=== PATIENT | female | born 1945 | race Caucasian/White ===

== ENCOUNTER 2017-03-08 21:49 | Inpatient (IN) | payer OTHER ==
[~2017-03-08] VITALS: Ht 170.2 cm; Wt 127.9 kg
[~2017-03-08 21:49] MED LIST: ACET-3457 PO; FENT100T TD
[2017-03-08 21:57] VITALS: BP 152/96
--- NOTE | 2017-03-08 22:25 | NUR ---
PT BIBA AND PLACED IN BED 10.
[2017-03-08 23:28] LABS: HEMATOCRIT 34.7 % (36-48); HEMOGLOBIN 11.2 g/dL (12.0-16.0); MEAN CORPUSCULAR HEMOGLOBIN 28 pg (27-31); MEAN CORPUSCULAR HGB CONC 32 g/dL (33-37); MEAN CORPUSCULAR VOLUME 86 fL (80-94); PLATELET COUNT (AUTO) 228 K/uL (140-450); RED BLOOD CELL COUNT(AUTO) 4.03 MIL/uL (4.20-5.40); RED CELL DISTRIBUTION WIDTH 15.1 % (11.6-13.7); WHITE BLOOD COUNT (AUTO) 6.3 K/uL (4.8-10.8)
[2017-03-08 23:35] LABS: APPEARANCE,URINE CLEAR (CLEAR); BILIRUBIN,URINE NEGATIVE (NEGATIVE); BLOOD, URINE NEGATIVE (NEGATIVE); COLOR,URINE YELLOW (YELLOW); LEUKOCYTE ESTERASE ,URINE NEGATIVE (NEGATIVE); NITRITE, URINE NEGATIVE (NEGATIVE); UGLUCOSE NEGATIVE (NEGATIVE)
[2017-03-08 23:39] LABS: ANION GAP 11.7 (8-16); CARBON DIOXIDE 30.9 mmol/L (21-32); CREATININE 0.9 mg/dL (0.6-1.3); LYMPHOCYTES % (MANUAL) 17 % (20-46); MONOCYTES % (MANUAL) 12 % (5-12); POTASSIUM 3.6 mmol/L (3.5-5.1)
[2017-03-08 23:45] LABS: ALBUMIN 3.5 g/dL (3.4-5.0); TOTAL BILIRUBIN 0.9 mg/dL (0.0-1.0)
[2017-03-09 00:06] LABS: PROTHROMBIN TIME 11.4 secs (10.8-13.4)
[2017-03-09] MEDS ORDERED: HYDROmorphone 1 MG/ML AMP IVP ONE ×2 (00:15→02:55)
--- NOTE | 2017-03-09 00:20 | NUR ---
Pt c/o right lower leg pain 10/. Pt in tears. Notified Dr Leach.
[2017-03-09] MEDS ORDERED: HYDROmorphone 1 MG/ML AMP ONE ×2 (00:26→03:08)
--- NOTE | 2017-03-09 00:37 | NUR ---
Patient being evaluated by Dr. Leach at bedside.
[2017-03-09] MEDS ORDERED: ORE25 PO (00:40)
[2017-03-09] MEDS ORDERED: NAPR500T1 PO (00:40)
[2017-03-09] MEDS ORDERED: METO25TE2 PO (00:40)
[2017-03-09] MEDS ORDERED: DIT5 PO (00:40)
[2017-03-09] MEDS ORDERED: PREG100C PO (00:40)
[2017-03-09] MEDS ORDERED: OMEP20TC12 PO (00:40)
[2017-03-09] MEDS ORDERED: ACET-5636 PO (00:40)
[2017-03-09] MEDS ORDERED: diphenhydrAMINE 50 MG/ML VIAL IVP ONE (00:50)
[2017-03-09] MEDS ORDERED: VANCOMYCIN 1,000 MG in DEXTROSE 5% 250 ML IV ONE (00:50)
[2017-03-09] MEDS ORDERED: CEFEPIME 1,000 MG in DEXTROSE 5% 50 ML IV ONE (00:50)
--- NOTE | 2017-03-09 00:51 | NUR ---
X-Ray at bedside.
--- NOTE | 2017-03-09 01:13 | NUR ---
Ultrasound at bedside.
[2017-03-09] MEDS ORDERED: CEFEPIME 1,000 MG VIAL ONE (01:42)
[2017-03-09] MEDS ORDERED: VANCOMYCIN 1,000 MG VIAL ONE (01:42)
[2017-03-09] MEDS ORDERED: FUROSEMIDE 20 MG/2 ML VIAL IVP ONE (01:50)
--- NOTE | 2017-03-09 02:00 | NUR ---
Pt resting. No changes.
[2017-03-09] MEDS ORDERED: MORPHINE SULFATE 4 MG/ML SYR IVP PRN (02:35)
[2017-03-09] MEDS ORDERED: LORazepam 2 MG/ML VIAL IVP PRN (02:35)
[2017-03-09] MEDS ORDERED: ONDANSETRON 4 MG/2 ML VIAL IVP PRN (02:35)
--- NOTE | 2017-03-09 03:10 | NUR ---
Patient will be admitted to care of Dr Mayorga. Admited to Tele. Will go to room 111B. Belongings list completed. Report to ARCHIE Bond.
--- NOTE | 2017-03-09 03:20 | NUR ---
ADMITTED PT FROM ER VIA [facility]ANCA. AAOX4. IV TO RIGHT AC #20, PATENT AND INTACT. PT HAS SANCHES CATH #16F. V/S TAKEN. PHYSICAL ASSESSMENT DONE. ORIENTED PT TO ROOM. DISCUSSED PLAN OF CARE, PT VERBALIZE UNDERSTANDING. NO C/O PAIN. SAFETY PRECAUTION IN PLACE. CALL LIGHT WITHIN REACH. WILL CONTINUE TO MONITOR.
[2017-03-09 04:00] VITALS: BP 120/79
[2017-03-09] MEDS ORDERED: LORazepam 1 MG TAB PO PRN (04:40)
--- NOTE | 2017-03-09 05:30 | NUR ---
PT RESTING IN BED. NO DISTRESS NOTED. ALL NEEDS MET AT THIS TIME. CALL LIGHT WITHIN REACH.
[2017-03-09] MEDS ORDERED: CLINDAMYCIN 600 MG/4 ML VIAL ONE (05:31)
[2017-03-09] MEDS: CLINDAMYCIN 600 MG in DEXTROSE 5% 50 ML IV SCH ×4 (05:34→21:24)
[2017-03-09] MEDS ORDERED: INTERDRY CLOTH TP PRN (06:25)
[2017-03-09 07:09] LABS: BASOPHILS # (AUTO) 0.2 K/uL (0.00-0.22); BASOPHILS % (AUTO) 3.7 % (0.0-2.0); EOSINOPHILS # (AUTO) 0.2 K/uL (0-0.4); EOSINOPHILS % (AUTO) 2.8 % (0.0-4.0); HEMATOCRIT 33.3 % (36-48); HEMOGLOBIN 10.7 g/dL (12.0-16.0); LYMPHOCYTES # (AUTO) 1.6 K/uL (2.5-16.5); LYMPHOCYTES % (AUTO) 29.6 % (20.5-51.1); MEAN CORPUSCULAR HEMOGLOBIN 28 pg (27-31); MEAN CORPUSCULAR HGB CONC 32 g/dL (33-37); MEAN CORPUSCULAR VOLUME 86 fL (80-94); MONOCYTES # (AUTO) 0.7 K/uL (0.8-1.0); MONOCYTES % (AUTO) 12.6 % (1.7-9.3); NEUTROPHILS # (AUTO) 2.9 K/uL (1.8-7.7); NEUTROPHILS % (AUTO) 51.3 % (42.2-75.2); PLATELET COUNT (AUTO) 205 K/uL (140-450); RED BLOOD CELL COUNT(AUTO) 3.86 MIL/uL (4.20-5.40); RED CELL DISTRIBUTION WIDTH 15.4 % (11.6-13.7); WHITE BLOOD COUNT (AUTO) 5.6 K/uL (4.8-10.8)
--- NOTE | 2017-03-09 07:15 | NUR ---
ENDORSED PT TO DAY SHIFT NURSE. PT IN STABLE CONDITION.
--- NOTE | 2017-03-09 07:16 | NUR ---
RECEIVED REPORT FROM LENS MOUNTER NURSE CRYSTAL AT BEDSIDE FOR CONTINUITY OF CARE. PT IS AWAKE AND ORIENTED. INTRODUCED SELF AND UPDATED BOARD. PT HAS NO COMPLAINTS AT THIS TIME. WILL CONTINUE TO MONITOR.
[2017-03-09 07:30] LABS: ALBUMIN 3.1 g/dL (3.4-5.0); ANION GAP 10.1 (8-16); CARBON DIOXIDE 32.4 mmol/L (21-32); CREATININE 0.9 mg/dL (0.6-1.3); MAGNESIUM 1.6 mg/dL (1.8-2.4); PHOSPHORUS 4.2 mg/dL (2.5-4.9); POTASSIUM 3.5 mmol/L (3.5-5.1); TOTAL BILIRUBIN 0.8 mg/dL (0.0-1.0)
[2017-03-09 08:00] VITALS: BP 135/89
[2017-03-09] MEDS ORDERED: HYDRAGUARD CREAM TP PRN (09:00)
[2017-03-09] MEDS ORDERED: INTERDRY CLOTH TP SCH (09:00)
[2017-03-09] MEDS ORDERED: METOPROLOL 25 MG TAB PO SCH (09:00)
[2017-03-09] MEDS ORDERED: METOPROLOL 25 MG TAB PO ONE (09:00)
[2017-03-09] MEDS ORDERED: CLINDAMYCIN 600 MG in DEXTROSE 5% 50 ML IV ONE (09:00)
[2017-03-09] MEDS ORDERED: VANCOMYCIN PER PHARMACY MC SCH (09:00)
[2017-03-09] MEDS: ENOXAPARIN 30 MG/0.3 ML SYR SUBQ SCH (09:02)
[2017-03-09] MEDS: INTERDRY CLOTH TP SCH (09:02)
[2017-03-09] MEDS: MORPHINE SULFATE 2 MG/ML SYR IVP PRN (09:04)
--- NOTE | 2017-03-09 09:30 | NUR ---
PT STATED SHE NEEDED TO USE THE BEDPAN. ASSISTED TO BEDPAN. PT HAD NO BM BUT PASSED GAS. REPOSITIONED PT IN BED WITH BLE ELEVATED. NO COMPLAINTS AT THIS TIME. WILL CONTINUE TO MONITOR.
--- NOTE | 2017-03-09 10:14 | NUR ---
PATIENT HAS BEEN SCREENED AND CATEGORIZED HIGH NUTRITION RISK. PATIENT WILL BE SEEN WITHIN 1-2 DAYS OF ADMISSION. 03/09/17 - 03/10/17 RIKY HERRON MBA, RD
[2017-03-09 12:00] VITALS: BP 134/89
--- NOTE | 2017-03-09 13:00 | NUR ---
ADMINISTERED MEDS. PT TOLERATED WELL. PT IS SITTING UP IN BED WATCHING TV. NO SIGNS OF DISTRESS. PT STATED PAIN ON RIGHT LEG IS MINIMAL. BED IN LOW POSITION PLACED CALL LIGHT WITHIN REACH. WILL CONTINUE TO MONITOR.
[2017-03-09] MEDS: HYDRAGUARD CREAM TP SCH (13:21)
[2017-03-09] MEDS ORDERED: MAG SULF 2000 MG/WATER PREMIX 50 ML IV SCH (13:33)
[2017-03-09] MEDS ORDERED: VANCOMYCIN 750 MG in DEXTROSE 5% 250 ML IV SCH (14:00)
[2017-03-09 16:00] VITALS: BP 124/78
[2017-03-09] MEDS ORDERED: POLYETHYLENE GLYCOL 17 GM/PKT PO SCH (17:55)
--- NOTE | 2017-03-09 19:22 | NUR ---
ENDORSED PT TO [facility] [employer] NURSE CRYSTAL AT BEDSIDE FOR CONTINUITY OF CARE. PT IN STABLE CONDITION.
--- NOTE | 2017-03-09 19:25 | NUR ---
RECEIVED REPORT FROM DAY SHIFT NURSE. PT LYING COMFORTABLY IN BED, WATCHING TV. AAOX4. IV TO RIGHT AC, PATENT AND INTACT. DISCUSSED PLAN OF CARE, PT VERBALIZE UNDERSTANDING. SAFETY PRECAUTION IN PLACE. CALL LIGHT WITHIN REACH.
[2017-03-09 20:00] VITALS: BP 134/62
[2017-03-09] MEDS ORDERED: POLYETHYLENE GLYCOL 17 GM/PKT PO PRN (20:30)
[2017-03-09] MEDS: OXYBUTYNIN 5 MG TAB PO SCH ×2 (20:34→21:24)
[2017-03-09] MEDS: PREGABALIN 50 MG CAP PO SCH ×2 (20:34→21:25)
[2017-03-09] MEDS ORDERED: cefTRIAXone 1,000 MG VIAL ONE (21:43)
--- NOTE | 2017-03-09 23:15 | NUR ---
PT C/O CONSTIPATION. MIRALAX GIVEN ORDERED. ALL NEEDS MET AT THIS TIME
[2017-03-10] VITALS: BP 122/64
[2017-03-10] MEDS: HYDRAGUARD CREAM TP SCH ×2 (01:00→15:00)
--- NOTE | 2017-03-10 02:13 | NUR ---
ASSISTED PT TO REPOSITION. NO DISTRESS NOTED. CALL LIGHT WITHIN REACH.
[2017-03-10 03:50] VITALS: BP 140/88
[2017-03-10] MEDS: CLINDAMYCIN 600 MG in DEXTROSE 5% 50 ML IV SCH ×3 (04:47→20:29)
[2017-03-10] MEDS: PREGABALIN 50 MG CAP PO SCH ×3 (04:52→20:29)
[2017-03-10] MEDS: MORPHINE SULFATE 2 MG/ML SYR IVP PRN ×3 (04:58→15:54)
--- NOTE | 2017-03-10 05:00 | NUR ---
PT SLEEPING. NO S/S OF DISTRESS. FIDE LIGHT WITHIN REACH.
[2017-03-10] MEDS ORDERED: PANTOPRAZOLE 40 MG TABEC PO SCH (06:30)
[2017-03-10 06:44] LABS: HEMOGLOBIN 11.3 g/dL (12.0-16.0); MEAN CORPUSCULAR HEMOGLOBIN 27 pg (27-31); MEAN CORPUSCULAR HGB CONC 32 g/dL (33-37); MEAN CORPUSCULAR VOLUME 86 fL (80-94); PLATELET COUNT (AUTO) 207 K/uL (140-450); RED BLOOD CELL COUNT(AUTO) 4.16 MIL/uL (4.20-5.40); RED CELL DISTRIBUTION WIDTH 15.3 % (11.6-13.7); WHITE BLOOD COUNT (AUTO) 6.5 K/uL (4.8-10.8)
[2017-03-10 07:04] LABS: CARBON DIOXIDE 28.6 mmol/L (21-32); CREATININE 0.8 mg/dL (0.6-1.3); POTASSIUM 3.6 mmol/L (3.5-5.1)
--- NOTE | 2017-03-10 07:10 | NUR ---
ENDORSED PT TO DAY SHIFT NURSE. PT IN STABLE CONDITION.
--- NOTE | 2017-03-10 07:11 | NUR ---
RECEIVED REPORT FROM INFORMATION LEAD NURSE CRYSTAL AT BEDSIDE FOR CONTINUITY OF CARE. PT IS AWAKE AND ORIENTED. INTRODUCED SELF AND UPDATED BOARD. PT IN STABLE CONDITION.
[2017-03-10 07:48] LABS: EOSINOPHILS % (MANUAL) 1 % (0-4); LYMPHOCYTES % (MANUAL) 23 % (20-46); MONOCYTES % (MANUAL) 8 % (5-12)
[2017-03-10 08:00] VITALS: BP 151/93
[2017-03-10] MEDS ORDERED: FUROSEMIDE 20 MG TAB PO SCH (09:00)
[2017-03-10] MEDS ORDERED: METOPROLOL SUCCINATE 50 MG TABER PO SCH (09:00)
[2017-03-10] MEDS ORDERED: FUROSEMIDE 40 MG TAB PO SCH (09:00)
[2017-03-10] MEDS ORDERED: HYDROCHLOROTHIAZIDE 25 MG TAB PO SCH (09:00)
[2017-03-10] MEDS: OXYBUTYNIN 5 MG TAB PO SCH ×2 (10:01→20:29)
[2017-03-10] MEDS: ENOXAPARIN 30 MG/0.3 ML SYR SUBQ SCH (10:02)
[2017-03-10 12:00] VITALS: BP 143/79
--- NOTE | 2017-03-10 12:00 | NUR ---
ASSISTED PT TO BSC USING WALKER AND TWO PERSON ASSIST. PT HAD A BM. ASSISTED BACK TO BED. ELEVATED LEGS. NO SIGNS OF DISTRESS.
--- NOTE | 2017-03-10 12:38 | NUR ---
03/10/17 RD INITIAL ASSESSMENT COMPLETED. PLEASE REFER TO NUTRITION PROGRESS NOTES UNDER CARE ACTIVITY FOR ESTIMATED NUTRITIONAL NEEDS. RD RECOMMENDATIONS: 1- RECOMMEND CONTINUE CARDIAC DIET 2- PROVIDED CARDIAC DIET EDUCATIONAL MATERIAL TO PT 3- F/U 3-5 DAYS; MODERATE RISK RIKY HERRON; HARRIETT,RD
[2017-03-10] MEDS: INTERDRY CLOTH TP SCH (13:28)
[2017-03-10] MEDS ORDERED: CLIN300C2 PO (14:10)
[2017-03-10 16:00] VITALS: BP 134/72
--- NOTE | 2017-03-10 16:00 | NUR ---
RECEIVED ORDER FOR PATIENT TO GO TO SNF FOR PT. PATIENT WAS ASKED BY THE NURSE, AND SHE HAD NO PREFERENCE FOR THE SNF. I FAXED INQUIRY TO [facility].
[2017-03-10] MEDS ORDERED: CLIN300C2 IV (16:12)
--- NOTE | 2017-03-10 16:38 | NUR ---
FAXED ORDER FOR IV ANTIBIOTICS ALSO WITH PHYSICAL THERAPY. I CALLED [facility] [phone] AND SENT THE ORDER FOR ANTIBIOTICS ALSO. JOSÉ MANUEL FROM [facility] SAID THEY WILL TAKE THE PATIENT. SHE WILL GO TO ROOM [address] UNDER DR. FARAH. [facility] SAID SHE WILL CALL JOSÉ MANUEL FROM [facility] WITH THE AUTH NUMBER. AUTH FOR [facility] IS [id number]. SHAYAN ALMANZA INFORMED. CALLED MICHELLE AT [facility], SET UP TRANSPORT FOR 8:30P.MAngie DOWNEY INFORMED.
--- NOTE | 2017-03-10 16:56 | NUR ---
FAXED ER REPORT, H&P PT NOTES AND DC ORDER TO [facility] [phone]
--- NOTE | 2017-03-10 17:12 | NUR ---
FAXED H&P, ER REPORT AND DISCHARGE SUMMARY TO [facility] [phone]
--- NOTE | 2017-03-10 19:00 | NUR ---
ENDORSED PT TO [employer] DRILL OPERATOR NURSE POP AT BEDSIDE FOR CONTINUITY OF CARE. D/C FORMS AND PLAN TO GO TO [facility] GIVEN. PT VERBALIZED UNDERSTANDING. D/C'D SANCHES. TIP INTACT. 200ML URINE NOTED. PT IN STABLE CONDITION.
[2017-03-10 20:00] VITALS: BP 119/91
--- NOTE | 2017-03-10 20:00 | NUR ---
RECEIVED ALERT,ORIENTED. AFEBRILE, NOT IN ACUTE DISTRESS. DENIES PAIN OR DISCOMFORT AT THIS TIME. PT. FOR TRANSFER TO [facility]. PICK-UP TIME IS 2029 BY [facility]. IV FLUIDS INFUSING AT TKO VIA RIGHT AC #20 IV LINE. SAO2=94% ON ROOM AIR. A.FIB AT 111/MINUTE ON THE MONITOR. VS STABLE, WILL CONTINUE TO MONITOR. NEEDS ATTENDED.
--- NOTE | 2017-03-10 20:29 | NUR ---
DUE MEDICATIONS GIVEN.
--- NOTE | 2017-03-10 21:29 | NUR ---
[facility] NOT HERE YET. NEW ETA IS 2145. [facility] ADMINISTERED.
--- NOTE | 2017-03-10 23:10 | NUR ---
[facility] HERE TO [facility]GL[facility] TECHNICIAN PT. REPORT GIVEN TO EMT LYLA DALEY.
--- NOTE | 2017-03-10 23:23 | NUR ---
AFTERCARE INSTRUCTIONS,COPY OF LABS,RADIOLOGY REPORTS, ETC GIVEN TO EMT'S. PATIENT LEFT UNIT VIA [facility] TOMAS.
--- NOTE | 2017-03-14 07:53 | NUR ---
Wound evaluation not done, pt. discharged
== END 2017-03-10 23:25 | DRG 603 ==
LOC: MED 21:49 → MTU 03-09 02:43
PROVIDERS: ADMIT Hospitalist; ATTEND Hospitalist
DX: L03.115 Cellulitis of right lower limb (principal); I48.91 Unspecified atrial fibrillation; Z68.41 Body mass index [BMI] 40.0-44.9, adult; I50.9 Heart failure, unspecified; J45.909 Unspecified asthma, uncomplicated; B35.9 Dermatophytosis, unspecified; I11.0 Hypertensive heart disease with heart failure; F41.9 Anxiety disorder, unspecified; E66.9 Obesity, unspecified; K21.9 Gastro-esophageal reflux disease without esophagitis; K29.70 Gastritis, unspecified, without bleeding; M06.9 Rheumatoid arthritis, unspecified; M79.7 Fibromyalgia; M19.90 Unspecified osteoarthritis, unspecified site; Z88.6 Allergy status to analgesic agent; Z91.041 Radiographic dye allergy status; Z88.0 Allergy status to penicillin; Z91.018 Allergy to other foods; Z79.1 Long term (current) use of non-steroidal anti-inflammatories (NSAID); Z79.899 Other long term (current) drug therapy
CPT/HCPCS: 36415; 71010; 73590; 80048; 80053; 80202; 81003; 83605; 83735; 83880; 84100; 84484; 85025; 85610; 85730; 87040; 87081; 93005; 93971; 96365; 96375; 96376; 97110; 97140; 99285; J0692; J0696; J1170; J1200; J1650; J1940; J2270; J3370; J3475; J3490; J7030; J7060; Q0092